=== PATIENT | male | born 1970 | race Hispanic/Latino ===

== ENCOUNTER 2021-03-05 10:47 | Outpatient (CLI) | payer OTHER | END 2021-03-05 10:48 | disposition home or self-care (01) | LOC: BICULT 10:47 | PROVIDERS: ATTEND Nurse Practitioner Family | DX: R10.31 Right lower quadrant pain (principal) | CPT/HCPCS: 93975 ==

== ENCOUNTER 2021-11-27 15:08 | Outpatient (CLI) | payer OTHER | END 2021-11-27 15:09 | disposition home or self-care (01) | LOC: BICRAD 15:08 | PROVIDERS: ATTEND Family Medicine | DX: M79.642 Pain in left hand (principal) ==

== ENCOUNTER → 2021-11-28 | Emergency (ER) | payer BC, OTHER | LOC: ERS 16:12 | DX: S62.633A Displaced fracture of distal phalanx of left middle finger, initial encounter for closed fracture (principal); W23.0XXA Caught, crushed, jammed, or pinched between moving objects, initial encounter | CPT/HCPCS: 99283 ==